=== PATIENT | female | born 1965 | race Caucasian/White ===

== ENCOUNTER 2023-04-30 06:37 | Emergency (ER) | payer OTHER, SELFPAY ==
[2023-04-30 06:46] VITALS: BP 170/110; PULSE 100; RESP 18; TEMP 36.8; O2SAT 99; BMI 24.8
--- NOTE | 2023-04-30 06:52 | XR_ITS ---
The [address] [address] Patient Name: YONY SINGH MRN: [facility]:[id number] date: 1965 Sex: F Assigned Patient Location: ED.MAIN Current Patient Location: ER Accession/Order Number: [id number] Exam Date: 04/30/2023 07:27 Report Date: 04/30/2023 08:02 At the request of: HARISH ANGEL Procedure: XR abdomen min 2V EXAM: XR abdomen min 2V 04/30/2023. FINDINGS: A total of 3 images of the abdomen and pelvis were obtained. HISTORY: constipation XR/XR abdomen min 2V IMPRESSION: 1. Heart size appears normal. Mid and lower lung zones are grossly clear. 2. There is significant retention of stool in the distribution of the large bowel suggestive of constipation. Mild nonspecific prominence of the fold pattern on the right may be related to partial distention and/or colitis. Correlate clinically. 3. There are numerous pelvic phleboliths. 4. No acute osseous abnormality. There is mild mid lumbar levocurvature centered at the L3 level with degenerative changes most apparent at L5-S1. Electronically authenticated by: VIRGILIO LITTLE Date: 04/30/2023 08:02
--- NOTE | 2023-04-30 07:42 | ED.ABDPAIN1 ---
HPI - Abdominal Pain General Chief Complaint: Abdominal Pain Stated Complaint: constipation Time Seen by Provider: 04/30/23 06:52 Source: patient Mode of arrival: walk-in History of Present Illness HPI narrative: patient constipated - has not had a BM in 5 days. She has continued to eat as she normally does. No vomiting. No fever or chills. No relief with stool softeners and suppositories. She has anterior abdominal pain and bilateral flank pains. Related Data Previous Rx's Medication Instructions Recorded hyoscyamine sulfate 0.125 mg 0.125 mg PO Q6H PRN abdominal pain 04/30/23 disintegrating tablet #20 tabs peg 3350-electrolytes 236 250 ml PO .q20min #2,000 mL 04/30/23 gram-22.74 gram-6.74 gram-5.86 gram solution (Golytely) Allergies Allergy/AdvReac Type Severity Reaction Status Date / Time No Known Drug Allergies Allergy Verified 04/30/23 06:51 PFSH PFSH Social History Smoking status: Never smoker Exam Narrative Exam Narrative: Nurses notes and vital signs reviewed and patient is not hypoxic. afebrile General: Well-appearing and in no apparent distress. Skin: Warm, dry, no pallor noted. Eye: Pupils are equal, round and EOMI. No scleral icterus. Cardiovascular: Regular Rate and Rhythm without murmur, gallop or rub. Respiratory: No accessory muscle use or respiratory distress. Lungs are clear to auscultation, no wheezing, rales or rhonchi Back: No CVA tenderness Musculoskeletal: normal ROM, no calf or popliteal tenderness, no lower extremity edema/swelling GI: Abdomen is soft, non-distended. Normal bowel sounds. No masses appreciated. Mild diffuse tenderness to palpation. No rebound, guarding, or rigidity noted. Neurological: A&O x4. No cranial nerve dysfunction observed. No truncal ataxia. Moves all extremities. Sensation intact. Psychiatric: Cooperative and interactive. Normal mood and affect. Constitutional Vital Signs, click to edit/add: Last Vital Signs Temp 98.3 F 04/30/23 06:46 Pulse 100 H 04/30/23 06:46 Resp 18 04/30/23 06:46 BP 170/110 H 04/30/23 06:46 Pulse Ox 99 04/30/23 06:46 O2 Del Method Room Air 04/30/23 06:46 Course Vital Signs Vital signs: Vital Signs Temperature 98.3 F 04/30/23 06:46 Pulse Rate 100 H 04/30/23 06:46 Respiratory Rate 18 04/30/23 06:46 Blood Pressure 170/110 H 04/30/23 06:46 Pulse Oximetry 99 04/30/23 06:46 Oxygen Delivery Method Room Air 04/30/23 06:46 Temperature 98.3 F 04/30/23 06:46 Pulse Rate 100 H 04/30/23 06:46 Respiratory Rate 18 04/30/23 06:46 Blood Pressure 170/110 H 04/30/23 06:46 Pulse Oximetry 99 04/30/23 06:46 Oxygen Delivery Method Room Air 04/30/23 06:46 MDM - Abdominal Pain MDM Narrative Medical decision making narrative: xrays reveal moderate colonic stool without obstruction. Patient given Levsin orally adn soap suds enema administered by ED nurse. The patient was then discharged home with prescription for GoLytely solution, recommendation to maintain a clear liquid diet for 24 hours. ED return if worse. Discharge Plan Discharge Chief Complaint: Abdominal Pain Clinical Impression: Constipation Patient Disposition: Home, Self-Care Time of Disposition Decision: 07:45 Prescriptions / Home Meds: New peg 3350-electrolytes [Golytely] 236-22.74-6.74 -5.86 gram recon soln 250 ml PO .q20min Qty: 2000 0RF Rx Instructions: until fecal effluent is clear hyoscyamine sulfate 0.125 mg tablet,disintegrating 0.125 mg PO Q6H PRN (Reason: abdominal pain) Qty: 20 0RF Instructions: Constipation (ED) Stand Alone Forms: Portal Instructions Referrals: Physician,Non-Staff, MD [Primary Care Provider] - 1 week
[2023-04-30] MEDS: HYOSCYAMINE SULFATE 0.125 MG TAB.SUBL SL (07:44)
== END 2023-04-30 08:26 | disposition home or self-care (01) ==
PROVIDERS: Emergency Provider Emergency Medicine; Family Provider Internal Medicine
DX: K59.00 Constipation, unspecified (principal)
CPT/HCPCS: 74019; 99283

== ENCOUNTER 2023-04-30 13:48 | Observation (INO) | payer OTHER, SELFPAY ==
[2023-04-30] VITALS (7 sets, daily range): BP systolic 142–168; BP diastolic 80–100; PULSE 83–109; RESP 20; TEMP 36.5–37.1; O2SAT 93–97; BMI 24.8; BMI 27.1
--- NOTE | 2023-04-30 14:06 | ED_ITS ---
HPI - Abdominal Pain General Chief Complaint: Abdominal Pain Stated Complaint: ABDOMINAL PAIN Time Seen by Provider: 04/30/23 13:50 Source: patient Mode of arrival: walk-in Limitations: no limitations History of Present Illness HPI narrative: I saw this patient earlier today - she complained of inability to pass stool for 5 days. She had xrays of the abdomen revealing colonic stool without obstruction and received two enemas in the ED before going home and taking about half of the GoLytely solution that I prescribed. She then began vomiting and became pale. Her pain increased. SO her brought her back to the ED to be evaluated and treated. She complains of nausea and diffuse abdominal pain. She said that she has not passed any stool. . Related Data Previous Rx's Medication Instructions Recorded hyoscyamine sulfate 0.125 mg 0.125 mg PO Q6H PRN abdominal pain 04/30/23 disintegrating tablet #20 tabs peg 3350-electrolytes 236 250 ml PO .q20min #2,000 mL 04/30/23 gram-22.74 gram-6.74 gram-5.86 gram solution (Golytely) Allergies Allergy/AdvReac Type Severity Reaction Status Date / Time No Known Drug Allergies Allergy Verified 04/30/23 06:51 PFSH PFSH Social History Smoking status: Never smoker Exam Narrative Exam Narrative: Nurses notes and vital signs reviewed and patient is not hypoxic. afebrile General: uncomfortable. Skin: Warm, dry, no pallor noted. Eye: Pupils are equal, round and EOMI. No scleral icterus. Ears, Nose, Mouth, and Throat: Oral mucosa is moist Cardiovascular: Regular Rate and Rhythm without murmur, gallop or rub. Respiratory: No accessory muscle use or respiratory distress. Lungs are clear to auscultation, no wheezing, rales or rhonchi Back: No CVA tenderness Musculoskeletal: normal ROM, no calf or popliteal tenderness, no lower extremity edema/swelling GI: Abdomen is soft, non-distended. Normal bowel sounds. No masses appre ciated. Diffuse tenderness to palpation. No rebound, guarding, or rigidity noted. Neurological: A&O x4. No cranial nerve dysfunction observed. No truncal ataxia. Moves all extremities. Sensation intact. Psychiatric: Cooperative and interactive. Normal mood and affect. Constitutional Vital Signs, click to edit/add: Last Vital Signs Temp 97.7 F 04/30/23 13:55 Pulse 109 H 04/30/23 13:55 Resp 20 04/30/23 13:55 BP 168/100 H 04/30/23 13:55 Pulse Ox 97 04/30/23 13:55 Course Vital Signs Vital signs: Vital Signs Temperature 97.7 F 04/30/23 13:55 Pulse Rate 109 H 04/30/23 13:55 Respiratory Rate 20 04/30/23 13:55 Blood Pressure 168/100 H 04/30/23 13:55 Pulse Oximetry 97 04/30/23 13:55 Temperature 97.7 F 04/30/23 13:55 Pulse Rate 109 H 04/30/23 13:55 Respiratory Rate 20 04/30/23 13:55 Blood Pressure 168/100 H 04/30/23 13:55 Pulse Oximetry 97 04/30/23 13:55 MDM - Abdominal Pain MDM Narrative Medical decision making narrative: the patient returns after having increased abdominal pain following the use of GoLYTELY at home with nausea and episodes of vomiting. Peripheral IV established and blood drawn and sent for testing. the patient was given NS IVF. She was sent for CT abd/pelvis with oral & IVC. Normal CBC and CMP. CT shows colitis or possibly diverticular disease with a lot of retained stool buty no definitive signs of obstruction - however the upstream colon and multiple loops of ileum are distended from the nondistended rectosigmoid colon - cannot exclude small partially obstructive lesion. Call placed to both the hospitalist and general surgeon distribution center administrator to discuss this case. Dr Barry and I discussed the case and the general surgeon's plan for the case and she agreed to admit the patient, [facility], obs. Dr Ying and I discussed the case, he has concerns for distal colonic cancer/mass and will be a websphere consultant on the case, possible barium enema vs distal endoscopy. Patient informed of all of this and agrees to be admitted. Lab Data Attestation: I reviewed the patient's lab results. Labs: Lab Results 04/30/23 Range/Units 14:25 WBC 10.0 (4.0-11.0) 10^3/uL RBC 4.54 (4.20-5.40) 10^6/uL Hgb 14.6 (12.0-16.0) g/dL Hct 43.0 (36.0-48.0) % MCV 94.7 (81.0-99.0) fL MCH 32.2 (26.7-34.0) pg MCHC 34.0 (29.9-35.2) g/dL RDW 11.9 (11.0-15.0) % Plt Count 349 (150-450) 10^3/uL MPV 8.6 L (9.5-13.5) fL Neut % (Auto) 66.7 (43.0-75.0) % Lymph % (Auto) 23.3 (20.5-60.0) % [place] % (Auto) 8.1 (1.7-12.0) % Eos % (Auto) 1.2 (0.9-7.0) % Baso % (Auto) 0.4 (0.2-2.0) % Neut # (Auto) 6.7 H (1.4-6.5) 10^3/uL Lymph # (Auto) 2.3 (1.2-3.8) 10^3/uL [place] # (Auto) 0.8 (0.3-0.8) 10^3/uL Eos # (Auto) 0.1 (0.0-0.7) 10^3/uL Baso # (Auto) 0.0 (0.0-0.1) 10^3/uL Abs Immat Gran (auto) 0.03 (0.00-0.03) 10^3/uL Imm/Tot Granulo (auto) 0.3 (0.0-0.5) % Sodium 137 (136-145) mmol/L Potassium 3.8 (3.5-5.1) mmol/L Chloride 100 (98-107) mmol/L Carbon Dioxide 24.3 (21.0-32.0) mmol/L Anion Gap 16.5 BUN 13.0 (7.0-18.0) mg/dL Creatinine 0.80 (0.55-1.02) mg/dL Est GFR ( Amer) >60 (>=60) Est GFR (Non-Af Amer) >60 (>=60) BUN/Creatinine Ratio 16.2 Glucose 138 H (74-106) mg/dL Calcium 10.0 (8.5-10.1) mg/dL Total Bilirubin 0.8 (0.2-1.0) mg/dL AST 17 (15-37) U/L ALT 27 (14-59) U/L Alkaline Phosphatase 94 (46-116) U/L Total Protein 8.2 (6.4-8.2) g/dL Albumin 4.1 (3.4-5.0) g/dL Globulin 4.1 g/dL Albumin/Globulin Ratio 1.[address] scan - abdomen: Radiologist's impression: Patient Name: YONY SINGH MRN: [facility]:[id number] date: 1965 Sex: F Assigned Patient Location: ER Current Patient Location: ER Accession/Order Number: [id number] Exam Date: 04/30/2023 15:38 Report Date: 04/30/2023 16:17 At the request of: VIN ALEXIS Procedure: CT abdomen pelvis w con EXAM: CT abdomen pelvis w con HISTORY: constipation, vomiting COMPARISON: None. TECHNIQUE: Axial CT images were obtained of the abdomen and pelvis without and with intravenous contrast. Multiplanar reconstructions were performed. ABDOMEN/PELVIS FINDINGS: Lower Chest: Unremarkable. Liver: Normal enhancement and contour. Biliary/Gallbladder: Unremarkable. Pancreas: Unremarkable. Spleen: Unremarkable. Adrenal Glands: Unremarkable. Kidneys: Unremarkable. Gastrointestinal/Peritoneum: There is a small hiatal hernia. There is diffuse wall thickening and pericolonic fat stranding of the rectosigmoid colon with moderate diverticular disease present. The ascending, transverse and proximal descending colon are distended with stool, while the distal sigmoid colon is nondistended. Multiple loops of ileum are mildly distended measuring 2.8 cm in diameter. The appendix is unremarkable. No free air or free fluid. Vascular: Unremarkable. Lymph Nodes: No enlarged lymph nodes by CT size criteria. Pelvic Organs: Fibroid uterus. Bladder: Unremarkable. Bones: No acute osseous abnormality. Soft tissues: Unremarkable. IMPRESSION: 1. Long segment of bowel wall thickening and nondistention at the rectosigmoid colon with moderate diverticular disease and mild pericolonic fat stranding, possibly due to diverticulitis or other acute or chronic infectious/inflammatory colitis. There are no definitive signs of obstruction at this time, however, the upstream colon and multiple loops of ileum are distended. Evaluation of the nondistended rectosigmoid colon is limited and a small partially obstructive lesion is not excluded. 2. Fibroid uterus. Electronically authenticated by: RONEN WORTHY Date: 04/30/2023 16:17 Discharge Plan Discharge Chief Complaint: Abdominal Pain Clinical Impression: Colitis, Constipation, Abdominal pain, Vomiting Patient Disposition: Admitted as Observation Time of Disposition Decision: 16:49 Prescriptions / Home Meds: No Action peg 3350-electrolytes [Golytely] 236-22.74-6.74 -5.86 gram recon soln 250 ml PO .q20min Qty: 2000 0RF Rx Instructions: until fecal effluent is clear hyoscyamine sulfate 0.125 mg tablet,disintegrating 0.125 mg PO Q6H PRN (Reason: abdominal pain) Qty: 20 0RF Referrals: Physician,Non-Staff, MD [Primary Care Provider] - 1 week
[2023-04-30 14:39] LABS: Basophils Percent Auto 0.4 % (0.2-2.0); Eosinophils Absolute Auto 0.1 10^3/uL (0.0-0.7); Eosinophils Percent Auto 1.2 % (0.9-7.0); Hemoglobin 14.6 g/dL (12.0-16.0); Immature Granulocytes Abs Auto 0.03 10^3/uL (0.00-0.03); Immature Granulocytes Pct Auto 0.3 % (0.0-0.5); Lymphocytes Absolute Auto 2.3 10^3/uL (1.2-3.8); Lymphocytes Percent Auto 23.3 % (20.5-60.0); Mean Corpuscular Hemoglobin 32.2 pg (26.7-34.0); Mean Corpuscular Volume 94.7 fL (81.0-99.0); Mean Platelet Volume 8.6 fL (9.5-13.5); Monocytes Absolute Auto 0.8 10^3/uL (0.3-0.8); Monocytes Percent Auto 8.1 % (1.7-12.0); Neutrophils Absolute Auto 6.7 10^3/uL (1.4-6.5); Neutrophils Percent Auto 66.7 % (43.0-75.0); Platelet Count 349 10^3/uL (150-450); Red Blood Count 4.54 10^6/uL (4.20-5.40); Red Cell Distribution Width 11.9 % (11.0-15.0)
[2023-04-30] MEDS: 0.9 % SODIUM CHLORIDE 1,000 ML 999 ML IV (14:43)
[2023-04-30] MEDS: ONDANSETRON PF 4 MG/2 ML VIAL IV (14:44)
[2023-04-30 14:57] LABS: Alanine Aminotransferase 27 U/L (14-59); Albumin Level 4.1 g/dL (3.4-5.0); Alkaline Phosphatase 94 U/L (46-116); Anion Gap 16.5; Aspartate Amino Transferase 17 U/L (15-37); BUN Creatinine Ratio 16.2; Bilirubin Total 0.8 mg/dL (0.2-1.0); Carbon Dioxide 24.3 mmol/L (21.0-32.0); Chloride 100 mmol/L (98-107); Estimated GFR (African America >60 (>=60); Estimated GFR (Non-African Ame >60 (>=60); Globulin 4.1 g/dL; Glucose 138 mg/dL (74-106); Potassium 3.8 mmol/L (3.5-5.1); Sodium 137 mmol/L (136-145); Total Protein 8.2 g/dL (6.4-8.2)
[2023-04-30] MEDS: HYDROMORPHONE HCL 0.5 MG/0.5 ML SYRINGE IV (15:04)
[2023-04-30] MEDS: LACTATED RINGER'S SOLUTION 1,000 ML 125 ML IV (18:38)
[2023-04-30] MEDS: KETOROLAC TROMETHAMINE 30 MG/ML VIAL IVP (18:39)
[2023-04-30] MEDS: CIPROFLOXACIN IN 5 % DEXTROSE 400 MG/200 ML PIGGYBACK IV (20:44)
[2023-04-30] MEDS: ENOXAPARIN SODIUM 40 MG/0.4 ML SYRINGE SUBQ (20:45)
[2023-05-01] VITALS (11 sets, daily range): BP systolic 142–143; BP diastolic 80–90; PULSE 80–98; RESP 16–20; TEMP 36.9–37.1; O2SAT 96
[2023-05-01] MEDS: LACTATED RINGER'S SOLUTION 1,000 ML 125 ML IV ×2 (03:45→13:50)
[2023-05-01 05:23] LABS: Basophils Percent Auto 0.2 % (0.2-2.0); Eosinophils Absolute Auto 0.1 10^3/uL (0.0-0.7); Eosinophils Percent Auto 0.8 % (0.9-7.0); Hematocrit 37.3 % (36.0-48.0); Immature Granulocytes Abs Auto 0.05 10^3/uL (0.00-0.03); Immature Granulocytes Pct Auto 0.5 % (0.0-0.5); Lymphocytes Absolute Auto 1.9 10^3/uL (1.2-3.8); Lymphocytes Percent Auto 18.8 % (20.5-60.0); Mean Corpuscular HGB Conc 32.2 g/dL (29.9-35.2); Mean Corpuscular Hemoglobin 31.6 pg (26.7-34.0); Mean Corpuscular Volume 98.2 fL (81.0-99.0); Mean Platelet Volume 8.4 fL (9.5-13.5); Monocytes Percent Auto 10.3 % (1.7-12.0); Neutrophils Percent Auto 69.4 % (43.0-75.0); Platelet Count 287 10^3/uL (150-450); White Blood Count 10.1 10^3/uL (4.0-11.0)
[2023-05-01 05:40] LABS: Estimated Average Glucose 103 mg/dL; Glycohemoglobin A1C 5.2 % (4.5-6.2)
[2023-05-01 05:45] LABS: Alanine Aminotransferase 23 U/L (14-59); Albumin Globulin Ratio 0.9; Albumin Level 3.2 g/dL (3.4-5.0); Alkaline Phosphatase 75 U/L (46-116); Anion Gap 7.8; Aspartate Amino Transferase 14 U/L (15-37); BUN Creatinine Ratio 19.7; Bilirubin Total 0.8 mg/dL (0.2-1.0); Calcium 9.3 mg/dL (8.5-10.1); Carbon Dioxide 32.2 mmol/L (21.0-32.0); Chloride 103 mmol/L (98-107); Estimated GFR (African America >60 (>=60); Estimated GFR (Non-African Ame >60 (>=60); Globulin 3.4 g/dL; Glucose 99 mg/dL (74-106); Sodium 139 mmol/L (136-145); Total Protein 6.6 g/dL (6.4-8.2)
--- NOTE | 2023-05-01 09:16 | P.HP_ITS ---
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 She notes that this weekend started to have some uncomfortable pains in her abdomen and became quite constipated. She denies any fevers or chills, she denies any recent weight loss, she denies any blood in her stools. She has never smoked and she denies any family history of early colon cancer. She has not had a screening colonoscopy or fecal occult testing up until this point. She presented to the emergency room twice and was given GoLYTELY which seemed to not help her bowels move and she also had two enemas without relief. A CT scan of abdomen and pelvis showed possible bowel obstruction with dilation so patient was admitted to the hospital for general surgery consult and further plan of care. Patient denies any nausea, vomiting and states that she had two small bowel movements this morning. She denies any fevers or chills, she denies changing her diet recently or any past medical history. She says up until this point she has been healthy. She does not follow with a doctor regularly. Review of Systems ROS Narrative ROS: a complete review of systems were reviewed with patient and are positive as below or listed in History of Chief Complaint. General: no fever, chills, night sweats Head: no headache, trauma, visual changes, nausea or vomiting Skin: no reported rashes, itching or sores Eyes: no blurriness of vision Ears: no reported hearing loss, vertigo, earache, or tinnitus Throat: no sore throat, hoarseness, swelling of neck, or tongue pain Heart: no chest pain Lungs: no shortness of breath or cough GI: constipation, no n/v/d Urinary: no urinary urgency, frequency or pain Neuro: no numbness or tingling HEM: no bleeding issues or bruising ENDO: no thyroid problems Psych: no anxiety or depression PFSH PFSH Family History Father Family history of diabetes mellitus Family history of hypertension Mother Family history of diabetes mellitus Social History Within the past year, how often did you have a drink containing alcohol: monthly or less Within the past year, how many standard drinks containing alcohol did you have on a typical day: 1 or 2 Within the past year, how often did you have six or more drinks on one occasion: never Total score: 0 Score interpretation: A score less than 3 is consistent with normal alcohol consumption. Smoking status: Never smoker Non-prescribed substance use: denies use Previous occupational history: [email or web address] Known occupational exposures/hazards: No Highest level of school completed/degree received: high school graduate Are you now , , , , never or living with a partner: living with partner In a typical week, how many times do you talk on the telephone with family, friends, or neighbors: 3 or more times per week How often do you get together with friends or relatives: 3 or more times per week How often do you attend congregation or orthodoxy services: never Do you belong to any clubs or organizations such as congregation groups unions, [employer] or athletic groups, or school groups: no Total score: 2 Score interpretation: A score of greater than or equal to 2 indicates the lowest level of social isolation. Little interest or pleasure in doing things: not at all Feeling down, depressed, or hopeless: not at all Feel stressed/tense/nervous/anxious/difficulty sleeping: not at all Do you think of yourself as: straight/heterosexual Gender Identity: female Meds Home Medications and Allergies Home Medications Medication Instructions Recorded Confirmed Type hyoscyamine sulfate 0.125 mg 0.125 mg PO Q6H PRN abdominal pain 04/30/23 Rx disintegrating tablet #20 tabs Allergies Allergy/AdvReac Type Severity Reaction Status Date / Time No Known Drug Allergies Allergy Verified 04/30/23 06:51 Exam Narrative Exam Narrative: General: Patient is alert, and oriented to person, place and time with normal affect, proper hygiene Skin: no visible rashes, or ulcers Head: atraumatic, acephalic Eyes: PERRLA, no nystagmus present, conjunctiva clear, no scleral icterus Ears: normal gross auditory acuity Neck: no masses palpated, normal thyroid Heart: Normal rate and rhythm, no murmurs/rubs/gallops Lungs: no audible wheezes, crackles and normal breath sounds all lung [place] Abdomen: hyperactive/ audible bowel sounds, mild distension, No palpable masses, no organomegaly Musculoskeletal: no swelling bilateral lower extremities Neuro: CN II-X grossly intact Constitutional Vital Signs, click to edit/add: Last Vital Signs Temp 98.5 F 05/01/23 05:56 Pulse 95 H 05/01/23 07:53 Resp 20 05/01/23 05:56 BP 143/80 H 05/01/23 05:56 Pulse Ox 96 05/01/23 05:56 O2 Del Method Room Air 05/01/23 05:56 Results Labs Labs: Short CBC 04/30/23 05/01/23 Range/Units 14:25 05:07 WBC 10.0 10.1 (4.0-11.0) 10^3/uL Hgb 14.6 12.0 (12.0-16.0) g/dL Hct 43.0 37.3 (36.0-48.0) % Plt Count 349 287 (150-450) 10^3/uL BMP 04/30/23 05/01/23 14:25 05:07 Sodium 137 139 Potassium 3.8 4.0 Chloride 100 103 Carbon Dioxide 24.3 32.2 H BUN 13.0 13.0 Creatinine 0.80 0.66 Glucose 138 H 99 Calcium 10.0 9.3 Liver Function 04/30/23 05/01/23 Range/Units 14:25 05:07 Total Bilirubin 0.8 0.8 (0.2-1.0) mg/dL AST 17 14 L (15-37) U/L ALT 27 23 (14-59) U/L Alkaline Phosphatase 94 75 (46-116) U/L Albumin 4.1 3.2 L (3.4-5.0) g/dL Assessment and Plan Assessment and Plan (1) Constipation: Assessment and Plan: normal WBC's, CT showed bowel wall thickening and moderate diverticular disease with some stranding possibly due to diverticulitis, distended loops of ileum, so patient was admitted with possible obstruction, small bowel follow-through with contrast today did not show any evidence of obstruction. I also started her on Cipro floxacillin for acute diverticulitis. We discussed findings and the importance and need for her to have an outpatient colonoscopy as a colon mass is not ruled out until colonoscopy is performed. Without any issues such as anemia, leukocytosis and if her abdominal pain resolves with bowel movement this cannot be done as an outpatient. Gen. surgery was also counseled Andrew and awaiting their recommendations. (2) Colitis: Assessment and Plan: continue ciprofloxacin and IV fluids (3) Abdominal pain: Assessment and Plan: most likely constipation related encouraged high-fiber diet Plan patient is a full code Lovenox for deep vein thrombosis prophylaxis Patient as an observation status and if has a bowel movement today will be discharged with close outpatient general surgery follow-up for colonoscopy
--- NOTE | 2023-05-01 09:19 | FL_ITS ---
[address] [address] Patient Name: YONY SINGH MRN: [id number] date: 1965 Sex: F Assigned Patient Location: MS Current Patient Location: MS Accession/Order Number: [id number] Exam Date: 05/01/2023 10:00 Report Date: 05/01/2023 10:58 At the request of: SARY JOSUE Procedure: FL small bowel EXAMINATION: FL small bowel HISTORY: Abdominal Pain COMPARISON: CT 04/30/2023 TECHNIQUE: Small bowel series was performed in the usual manner. application chemist abdominal radiograph was performed. Standard level fluoroscopic mode of operation utilized. FINDINGS: DUODENUM: No ulceration or diverticulum. JEJUNUM: No obstruction or visible lesion. ILEUM: No obstruction or visible lesion. OTHER: Small bowel transit time is less than 30 minutes FL/FL small bowel IMPRESSION: Fast small bowel transit time less than 30 minutes Nonobstructive bowel gas pattern Electronically authenticated by: DILLON GALEANA Date: 05/01/2023 10:58
[2023-05-01] MEDS: CIPROFLOXACIN IN 5 % DEXTROSE 400 MG/200 ML PIGGYBACK 200 MG IV (09:26)
[2023-05-01] MEDS: KETOROLAC TROMETHAMINE 30 MG/ML VIAL IVP (11:08)
--- NOTE | 2023-05-01 11:53 | CM.NOTE ---
Rounds made with Dr. Barry, possible discharge later this afternoon if pt has BM.
--- NOTE | 2023-05-01 14:01 | P.GSCN_ITS ---
History of Present Illness Consult details Consult date: 05/01/23 Reason for consult: other Requesting physician: Naldo Khalil Narrative: Liliana Lui is a 57-year-old female who presented to the emergency room on two different occasions yesterday originally in the morning due to abdominal pain and was found have constipation on plain abdominal x-rays. The Emergency Department physician then center home with a bowel preparation and she took about half of that and had nausea and vomiting and more abdominal pain described a sharp in the left lower quadrant therefore she returned to the later in the afternoon yesterday and had a CAT scan of the abdomen and pelvis performed which showed inflammatory stranding around the rectal sigmoid area with distention of the descending colon proximal to that point with nondistended of the rectosigmo id area and there was also distention of the terminal ileum. They could not rule out tumor. Patient has since had a small bowel series done today and was read as normal and she is passing small nuggets of stool. She has been constipated for a week prior to coming to the emergency room. She has never had problems with her bowels prior to that time. She has not seen a PCP in over ten years and does not have a PCP. She works at a local [employer]. Her boyfriend is at the bedside. She denies any nausea or vomiting except yesterday and denies any history of indigestion or heartburn although her boyfriend states that she's had heartburn in the past and ignored it. She denies any unusual weight loss or decreased appetite or change in bowel habits or any rectal bleeding other than after she had an enema done yesterday. She denies any family history of colon cancer. She has never had a colonoscopy. Review of Systems ROS Status of ROS 10 or more systems reviewed and unremarkable except as noted in history and below PFSH PFSH Family History Father Family history of diabetes mellitus Family history of hypertension Mother Family history of diabetes mellitus Social History Within the past year, how often did you have a drink containing alcohol: monthly or less Within the past year, how many standard drinks containing alcohol did you have on a typical day: 1 or 2 Within the past year, how often did you have six or more drinks on one occasion: never Total score: 0 Score interpretation: A score less than 3 is consistent with normal alcohol consumption. Smoking status: Never smoker Non-prescribed substance use: denies use Previous occupational history: [employer] worker Known occupational exposures/hazards: No Highest level of school completed/degree received: high school graduate Are you now , , , , never or living with a partner: living with partner In a typical week, how many times do you talk on the telephone with family, friends, or neighbors: 3 or more times per week How often do you get together with friends or relatives: 3 or more times per week How often do you attend rastafari or latter-day services: never Do you belong to any clubs or organizations such as rastafari groups unions, [employer] or athletic groups, or school groups: no Total score: 2 Score interpretation: A score of greater than or equal to 2 indicates the lowest level of social isolation. Little interest or pleasure in doing things: not at all Feeling down, depressed, or hopeless: not at all Feel stressed/tense/nervous/anxious/difficulty sleeping: not at all Do you think of yourself as: straight/heterosexual Gender Identity: female Meds Home Medications and Allergies Home Medications Medication Instructions Recorded Confirmed Type hyoscyamine sulfate 0.125 mg 0.125 mg PO Q6H PRN abdominal pain 04/30/23 04/30/23 Rx disintegrating tablet #20 tabs Allergies Allergy/AdvReac Type Severity Reaction Status Date / Time No Known Drug Allergies Allergy Verified 04/30/23 06:51 Exam Constitutional Vital Signs, click to edit/add: Last Vital Signs Temp 98.5 F 05/01/23 05:56 Pulse 81 05/01/23 11:56 Resp 20 05/01/23 05:56 BP 143/80 H 05/01/23 05:56 Pulse Ox 96 05/01/23 05:56 O2 Del Method Room Air 05/01/23 05:56 Documenting provider has reviewed patient's vital signs: yes Common normals: no apparent distress, average body habitus, oriented x3, healthy appearing (appears slightly pale) and well nourished General appearance: cooperative, well developed and appears older than stated age Orientation/consciousness: Yes awake, Yes oriented to person, Yes oriented to place and Yes oriented to time Respiratory Common normals: normal respiratory effort and clear to auscultation bilaterally Cardio Common normals: regular rate, regular rhythm and no murmurs GI Common normals: Normal to inspection, nondistended, normoactive bowel sounds present, soft to palpation, non-tender and no masses Neuro Common normals: oriented x3 Results Labs Labs: Abnormal lab results 04/30/23 05/01/23 Range/Units 14:25 05:07 RBC 3.80 L (4.20-5.40) 10^6/uL MPV 8.6 L 8.4 L (9.5-13.5) fL Lymph % (Auto) 18.8 L (20.5-60.0) % Eos % (Auto) 0.8 L (0.9-7.0) % Neut # (Auto) 6.7 H 7.0 H (1.4-6.5) 10^3/uL Duval # (Auto) 1.0 H (0.3-0.8) 10^3/uL Abs Immat Gran (auto) 0.05 H (0.00-0.03) 10^3/uL Carbon Dioxide 32.2 H (21.0-32.0) mmol/L Glucose 138 H (74-106) mg/dL AST 14 L (15-37) U/L Albumin 3.2 L (3.4-5.0) g/dL Diabetes panel 04/30/23 05/01/23 Range/Units 14:25 05:07 Sodium 137 139 (136-145) mmol/L Potassium 3.8 4.0 (3.5-5.1) mmol/L Chloride 100 103 (98-107) mmol/L Carbon Dioxide 24.3 32.2 H (21.0-32.0) mmol/L BUN 13.0 13.0 (7.0-18.0) mg/dL Creatinine 0.80 0.66 (0.55-1.02) mg/dL Glucose 138 H 99 (74-106) mg/dL Hemoglobin A1c 5.2 (4.5-6.2) % Calcium 10.0 9.3 (8.5-10.1) mg/dL AST 17 14 L (15-37) U/L ALT 27 23 (14-59) U/L Alkaline Phosphatase 94 75 (46-116) U/L Total Protein 8.2 6.6 (6.4-8.2) g/dL Albumin 4.1 3.2 L (3.4-5.0) g/dL Calcium panel 04/30/23 05/01/23 Range/Units 14:25 05:07 Calcium 10.0 9.3 (8.5-10.1) mg/dL Albumin 4.1 3.2 L (3.4-5.0) g/dL Pituitary panel 04/30/23 05/01/23 Range/Units 14:25 05:07 Sodium 137 139 (136-145) mmol/L Potassium 3.8 4.0 (3.5-5.1) mmol/L Chloride 100 103 (98-107) mmol/L Carbon Dioxide 24.3 32.2 H (21.0-32.0) mmol/L BUN 13.0 13.0 (7.0-18.0) mg/dL Creatinine 0.80 0.66 (0.55-1.02) mg/dL Glucose 138 H 99 (74-106) mg/dL Calcium 10.0 9.3 (8.5-10.1) mg/dL Adrenal panel 04/30/23 05/01/23 Range/Units 14:25 05:07 Sodium 137 139 (136-145) mmol/L Potassium 3.8 4.0 (3.5-5.1) mmol/L Chloride 100 103 (98-107) mmol/L Carbon Dioxide 24.3 32.2 H (21.0-32.0) mmol/L BUN 13.0 13.0 (7.0-18.0) mg/dL Creatinine 0.80 0.66 (0.55-1.02) mg/dL Glucose 138 H 99 (74-106) mg/dL Calcium 10.0 9.3 (8.5-10.1) mg/dL Total Bilirubin 0.8 0.8 (0.2-1.0) mg/dL AST 17 14 L (15-37) U/L ALT 27 23 (14-59) U/L Alkaline Phosphatase 94 75 (46-116) U/L Total Protein 8.2 6.6 (6.4-8.2) g/dL Albumin 4.1 3.2 L (3.4-5.0) g/dL All other labs normal. Imaging Abdominal x-ray: report reviewed Abdomen CT scan report/results: report reviewed Assessment and Plan Assessment and Plan (1) Constipation: (2) Colitis: (3) Abdominal pain: (4) Abnormal CT scan, gastrointestinal tract: (5) Diverticular disease of colon: Plan Patient offered colonoscopy but wishes to go home and return as an outpatient at a later date. I reiterated to patient that she needs a colonoscopy sooner rather than later. Would like to rule out a colon cancer or diverticular stricture since she's having constipation issues. She was instructed and given the phone number of my office to call today to schedule an outpatient colonoscopy in the coming weeks. She voiced understanding of the above.
--- NOTE | 2023-05-01 16:16 | PM.DS1 ---
DS: Providers Provider Date of admission: 04/30/23 18:05 Primary care physician: Non-Staff Physician, Admitting clinician: Becca Barry Consults: 04/30/23 17:15 Consult to General Surgeon Routine Consulting Provider: Shlomo Ying Reason for consultation: sbo Has provider been notified: Yes Attending physician on discharge: Becca Barry DS: Diagnosis Discharge Diagnosis (1) Constipation: (2) Colitis: (3) Abdominal pain: (4) Abnormal CT scan, gastrointestinal tract: (5) Diverticular disease of colon: DS: Summary Hospital Course Hospital Course: patient is a 57-year-old female who has no known past medical history and 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 She notes that this weekend started to have some uncomfortable pains in her abdomen and became quite constipated. She denies any fevers or chills, she denies any recent weight loss, she denies any blood in her stools. She has never smoked and she denies any family history of early colon cancer. She has not had a screening colonoscopy or fecal occult testing up until this point. She presented to the emergency room twice and was given GoLYTELY which seemed to not help her bowels move and she also had two enemas without relief. Patient denies any nausea, vomiting and states that she had two small bowel movements this morning. She denies any fevers or chills, she denies changing her diet recently. normal WBC's, CT showed bowel wall thickening and moderate diverticular disease with some stranding possibly due to diverticulitis, distended loops of ileum, so patient was admitted with possible obstruction, small bowel follow-through with contrast today did not show any evidence of obstruction. I also started her on Ciprofloxacin for acute diverticulitis. We discussed findings and the importance and need for her to have an outpatient colonoscopy as a colon mass is not ruled out until colonoscopy is performed. Without any issues such as anemia, leukocytosis and her abdominal pain resolved with bowel movement she will be discharged home on cipro 500mg BID x 7 days and close, [place] follow up with General Surgery for colonoscopy evaluation. She is to return to the ER with any worsening conditions or symptoms. Encouraged high fiber diet and daily Miralax. Status at Discharge Functional status at discharge: independent ambulation Overall status at discharge: patient is back to baseline Time Spent with Patient Time attestation: Total time spent providing and/or coordinating discharge services: Time spent: less than 30 minutes Exam Narrative Exam Narrative: no changes at the time of discharge from admitting H and P dated 05/01/23 Constitutional Vital Signs, click to edit/add: Last Vital Signs Temp 98.7 F 05/01/23 15:11 Pulse 98 H 05/01/23 15:58 Resp 16 05/01/23 15:11 BP 142/90 H 05/01/23 15:11 Pulse Ox 96 05/01/23 15:11 O2 Del Method Room Air 05/01/23 15:11 DS: Data Data Completed and Pending Labs on day of discharge: Labs from last 24 hours 05/01/23 05:07 WBC 10.1 RBC 3.80 L Hgb 12.0 Hct 37.3 MCV 98.2 MCH 31.6 MCHC 32.2 RDW 12.0 Plt Count 287 MPV 8.4 L Neut % (Auto) 69.4 Lymph % (Auto) 18.8 L Cloud % (Auto) 10.3 Eos % (Auto) 0.8 L Baso % (Auto) 0.2 Neut # (Auto) 7.0 H Lymph # (Auto) 1.9 Cloud # (Auto) 1.0 H Eos # (Auto) 0.1 Baso # (Auto) 0.0 Abs Immat Gran (auto) 0.05 H Imm/Tot Granulo (auto) 0.5 Sodium 139 Potassium 4.0 Chloride 103 Carbon Dioxide 32.2 H Anion Gap 7.8 BUN 13.0 Creatinine 0.66 Est GFR ( Amer) >60 Est GFR (Non-Af Amer) >60 BUN/Creatinine Ratio 19.7 Glucose 99 Estimat Average Glucose 103 Hemoglobin A1c 5.2 Calcium 9.3 Total Bilirubin 0.8 AST 14 L ALT 23 Alkaline Phosphatase 75 Total Protein 6.6 Albumin 3.2 L Globulin 3.4 Albumin/Globulin Ratio 0.9 Discharge Plan Discharge Disposition: Home, Self-Care Discharge Medications: New ciprofloxacin HCl 500 mg tablet 500 mg PO BID 7 Days Qty: 14 0RF Continued hyoscyamine sulfate 0.125 mg tablet,disintegrating 0.125 mg PO Q6H PRN (Reason: abdominal pain) Qty: 20 0RF Activity: increase activity as tolerated Diet: advance to your usual diet and other Diet Detail: high fiber Patient Instructions: Constipation (DC), Abdominal Pain (DC) Forms: Portal Instructions Follow Up Appointments: Call Dr. Ying [phone] office to schedule an appointment in 7-10 days to follow up for outpatient colonoscopy. Establish care with primary care physician an get a follow up appointment in 7-10 days. Discharge Date/Time: 05/01/23 18:13
== END 2023-05-01 18:13 | disposition home or self-care (01) ==
LOC: ER 16:53 → MS 18:19
PROVIDERS: Admitting Provider Family Medicine; Emergency Provider Emergency Medicine; Family Provider Internal Medicine; Visit Provider Family Medicine
DX: K59.00 Constipation, unspecified (principal); K52.9 Noninfective gastroenteritis and colitis, unspecified; R10.9 Unspecified abdominal pain; K57.30 Diverticulosis of large intestine without perforation or abscess without bleeding; R93.5 Abnormal findings on diagnostic imaging of other abdominal regions, including retroperitoneum; R11.10 Vomiting, unspecified
CPT/HCPCS: 36415; 74019; 74177; 74250; 80053; 83036; 85025; 96361; 96365; 96372; 96375; 96376; 99283; 99285; G0378; J1170; Q9963; Q9966; Q9967

== ENCOUNTER 2023-06-10 13:32 | Outpatient (OUT) | payer OTHER, SELFPAY | END 2023-06-10 13:33 | disposition home or self-care (01) | LOC: PST 13:33 | PROVIDERS: Family Provider Internal Medicine; Visit Provider Surgery | DX: Z01.818 Encounter for other preprocedural examination (principal); R93.3 Abnormal findings on diagnostic imaging of other parts of digestive tract ==

== ENCOUNTER 2023-06-18 06:47 | Day surgery (SDC) | payer OTHER, SELFPAY ==
[2023-06-18 07:14] VITALS: BP 131/87; PULSE 108; RESP 20; TEMP 37.3; O2SAT 98; BMI 25.7
[2023-06-18] MEDS: LACTATED RINGER'S SOLUTION 1,000 ML 50 ML IV (07:20)
[2023-06-18 07:38] LABS: HCG Qualitative NEGATIVE (NEGATIVE)
--- NOTE | 2023-06-18 08:06 | P.GSPRC_ITS ---
Date of procedure: 06/18/23 Indications for Procedure: abnormal CT scan GI tract constipation abdominal pain Pre-op diagnosis: abnormal CT gi tract/constipation/abdominal pain Post-op diagnosis: other (diverticulosis sigmoid and descending colon large multiple) Procedure: colonoscopy Findings: diverticulosis sigmoid and descending colon multiple Anesthesia: MAC Surgeon: Shlomo Ying Procedure Summary: The patient was taken to the operating suite and placed in the left lateral p osition after being given IV conscious sedation as above. Rectal digital exam normal. No external? hemorrhoids noted. The Olympus video colonoscope was then advanced under direct visualization into the rectum, sigmoid colon, descending colon, transverse colon, and ascending colon to the ileocecal valve which was visualized.?Appendiceal lumen was visualized. There were no polyps or tumors seen. There were multiple diverticuli which were large in the sigmoid and descending colon.The scope was then slowly withdrawn with air being desufflated as the scope was withdrawn and again finding no abnormalities. There were no internal hemorrhoids or external hemorrhoids noted. The patient tolerated the procedure well and went to the recovery area in satisfactory condition.excellent. Would recommend patient use bulk laxative on a regular basis and have a screening colonoscopy in ten years unless problems. Estimated blood loss (mL): 0 Specimens: none Complications: No Pathology: none sent Condition: stable Disposition: PACU
[2023-06-18 08:56] VITALS: BP 104/76; PULSE 82; RESP 18; TEMP 36.2; O2SAT 92
[2023-06-18 09:11] VITALS: BP 125/90; PULSE 77; RESP 16; O2SAT 97
[2023-06-18 09:26] VITALS: BP 139/84; PULSE 87; RESP 18; O2SAT 96
== END 2023-06-18 09:28 | disposition home or self-care (01) ==
PROVIDERS: Family Provider Internal Medicine; Visit Provider Surgery
PROC: (CPT 811; principal; 2023-06-18 07:55)
DX: K57.30 Diverticulosis of large intestine without perforation or abscess without bleeding (principal); R93.3 Abnormal findings on diagnostic imaging of other parts of digestive tract; K59.00 Constipation, unspecified; R10.9 Unspecified abdominal pain
CPT/HCPCS: 45378; 36415; 84703; J1100; J2405; J2704